=== PATIENT | female | born 1950 | race Caucasian/White ===

== ENCOUNTER → 2018-02-22 | Outpatient (CLI) | payer OTHER | LOC: CIMAGING 15:06 | PROVIDERS: ATTEND Family Medicine | DX: R05 Cough (principal) | CPT/HCPCS: 71046-PO ==

== ENCOUNTER → 2018-03-27 | Outpatient (CLI) | payer OTHER | LOC: CIMAGING 16:16 | PROVIDERS: ATTEND Internal Medicine Cardiovascular Disease | DX: J81.1 Chronic pulmonary edema (principal); J90 Pleural effusion, not elsewhere classified | CPT/HCPCS: 71046-PO ==

== ENCOUNTER 2018-05-24 08:32 | Day surgery (SDC) | payer OTHER ==
[2018-05-24] MEDS ORDERED: MIDAZOLAM 2 MG/2 ML VIAL IVP ONE (08:36)
[2018-05-24] MEDS ORDERED: NS 500 ML IV ONE (08:36)
[2018-05-24] MEDS ORDERED: fentaNYL 100 MCG/2 ML INJ IVP ONE (08:36)
[2018-05-24] MEDS ORDERED: ATROPINE SULFATE 1 MG/10 ML SYR IVP ONE (08:36)
[2018-05-24] MEDS ORDERED: BENZOCAINE UNIT DOSE SPRAY HURRICAINE MM ONE (08:36)
[2018-05-24 09:29] LABS: INR 1.63 (0.83-1.16); PROTIME(PATIENT) 19.5 SEC (12.0-15.0)
--- NOTE | 2018-05-24 09:40 | PDANEPAE ---
ANE History of Present Illness here for CV ANE Past Medical History - Cardiovascular History Hx Hypertension: No Hx Arrhythmias: Yes Hx Chest Pain: No Hx Coronary Artery / Peripheral Vascular Disease: No Hx CHF / Valvular Disease: No Hx Palpitations: No - Pulmonary History Hx COPD: No Hx Asthma/Reactive Airway Disease: No Hx Recent Upper Respiratory Infection: No Hx Oxygen in Use at Home: No Hx Sleep Apnea: No Pulmonary History Comment: history of lung cancer - Neurologic History Hx Cerebrovascular Accident: No Hx Seizures: No Hx Dementia: No ANE Review of Systems Review of systems is: negative Review of Systems: - Exercise capacity Exercise capacity: >=4 METS ANE Patient History - Allergies Allergies/Adverse Reactions: No Known Allergies Allergy (Unverified 05/24/18 08:35) - Home Medications Home medications: home medication list seen and reviewed - NPO status NPO Status: no food or drink >8 hours ANE Labs/Vital Signs - Labs Result Diagrams: 05/24/18 08:55 - Vital Signs Vital Signs: reviewed preoperatively; see RN documention for details ANE Physical Exam - Airway Neck exam: FROM Mallampati Score: Class 1 - Pulmonary Pulmonary: no respiratory distress - Cardiovascular Cardiovascular: regular rate and rhythym - ASA Status ASA Status: II ANE Anesthesia Plan Anesthesia Plan: GA w LMA
--- NOTE | 2018-05-24 09:47 | PDHPUP ---
History & Physical Update H&P update statement: This history and physical update is based on an assessment of the patient which was completed after admission or registration (within 24 hours), but prior to the surgery/procedure. H&P update: H&P reviewed & patient examined, no change in patient's condition since H&P completed
[2018-05-24] MEDS ORDERED: PROPOFOL 200 MG/20 ML VIAL ONE (09:51)
--- NOTE | 2018-05-24 10:07 | POSTANESTH ---
Post Anesthetic Evaluation Cardiovascular Status: Normal, Stable Respiratory Status: Normal, Stable Level of Consciousness/Mental Status: Moderately Sleepy Pain Control: Adequate, Prn Tx Ordered Nausea/Vomiting Control: Adequate, Prn Tx Ordered Complications Possibly Related to Anesthesia: None Noted
--- NOTE | 2018-05-24 10:11 | PDCARTEE ---
CAR MELISSA CAR MELISSA: After consents for both anesthesia and cardioversion were signed, and risks were discussed with patient and . Uninterrupted Xarelto since mid 2018. Atrial fibrillation noted on telemetry today (rates of >100 bpm). No indication for MELISSA given the length of therapy as well as 100% compliance. A single synchronized shock at 200J was performed with successful conversion to normal sinus rhythm (rates of 60-70 bpm) with frequent PACs. Patient did well with this procedure. No complications were noted.
== END 2018-05-24 12:00 | disposition home or self-care (01) ==
LOC: FCATH 08:32
PROVIDERS: ATTEND Internal Medicine Cardiovascular Disease
PROC: 5A2204Z Restoration of Cardiac Rhythm, Single (ICD-10-PCS; principal; 2018-05-24)
DX: I48.91 Unspecified atrial fibrillation (principal); I10 Essential (primary) hypertension; Z79.01 Long term (current) use of anticoagulants; Z85.118 Personal history of other malignant neoplasm of bronchus and lung; Z87.891 Personal history of nicotine dependence; Z88.0 Allergy status to penicillin; Z90.2 Acquired absence of lung [part of]
CPT/HCPCS: J2704